=== PATIENT | male | born 1960 | race Caucasian/White ===

== ENCOUNTER 2016-07-05 19:24 | Emergency (ER) | payer BC ==
[~2016-07-05] VITALS: Ht 177.8 cm; Wt 144.9 kg
[2016-07-05 19:26] VITALS: TEMP 36.7; Ht 177.8 cm; Wt 144.9 kg
[2016-07-05] MEDS ORDERED: IBUP-103 PO (19:41)
[2016-07-05] MEDS ORDERED: ACETTAB15 PO (19:41)
[2016-07-05] MEDS ORDERED: EPP3/2 IM (19:41)
[2016-07-05] MEDS ORDERED: DIPHTHERIA/TETANUS/PERTUSSIS 0.5 ML SYR/VIAL IM. ONE (19:45)
[2016-07-05] MEDS ORDERED: LIDOCAINE/EPINEPHRINE 1% 20 ML VIAL INFIL ONE (19:45)
--- NOTE | 2016-07-05 20:44 | DIAGNOSTIC IMAGING REPORT ---
RIGHT FOOT 3 VIEWS HISTORY: right foot laceration Right COMPARISON: None. FINDINGS: There is no fracture or dislocation. Plantar and posterior calcaneal spurs. Mild osteoarthritis at the first MTP joint. Soft tissue laceration at the medial aspect of the first MTP joint. No underlying fracture. Overlying bandage obscures fine bony detail. IMPRESSION: Soft tissue laceration at the medial aspect of the first MTP joint. No underlying fracture. Electronically signed by: Wei Rodriguez M.D. 07/05/2016 8:42 PM Dictated Date/Time: 07/05/2016 8:40 PM
--- NOTE | 2016-07-05 21:52 | EMERGENCY ROOM VISIT NOTE ---
ED Visit Note First contact with patient: 19:34 CHIEF COMPLAINT: Right foot laceration HISTORY OF PRESENT ILLNESS: This 56-year-old male patient presents to the emergency department ambulatory after cutting the right foot one hour prior to arrival. The patient states that he was holding down a plank with his foot while using a circular saw to cut it. He states the saw kicked back, injuring his right foot through his shoe. The bleeding has stopped. Denies weakness or numbness of the foot or toes. The patient rates the pain as sharp and 5/10. The patient denies any other injuries. The patient's Tetanus shot is not up to date. REVIEW OF SYSTEMS: A 6 system review of systems was completed with positives and pertinent negatives listed in the HPI. ALLERGIES: Bee stings MEDICATIONS: No daily medications. PMH: No significant past medical history. SOCIAL HISTORY: The patient lives locally with his family. PHYSICAL EXAM: Vital Signs: Reviewed Nurse's notes, vital signs stable. GENERAL : This is a 56-year-old male, in no acute distress, well-developed, well- nourished. SKIN: There is a 6 cm long laceration on the medial aspect of the right foot. The edges gape apart with traction. There is no foreign material in the wound and it looks clean. There is no active bleeding. No deep structures such as tendons, bones, or significant blood vessels are seen in the base of the wound. Normal strength and movement of the toes. Capillary refill less than 2 seconds. Normal sensation to light and sharp touch. RADIOGRAPHIC FINDINGS: RIGHT FOOT 3 VIEWS HISTORY: right foot laceration Right COMPARISON: None. FINDINGS: There is no fracture or dislocation. Plantar and posterior calcaneal spurs. Mild osteoarthritis at the first MTP joint. Soft tissue laceration at the medial aspect of the first MTP joint. No underlying fracture. Overlying bandage obscures fine bony detail. IMPRESSION: Soft tissue laceration at the medial aspect of the first MTP joint. No underlying fracture. EMERGENCY DEPARTMENT COURSE: I examined the patient. X-ray of the foot was obtained and read by radiology with no acute bony abnormalities. Verbal consent was obtained to perform the procedure. Using sterile technique the wound was cleansed with Betadine. The area was sterilely draped. 6 ml of 1% buffered lidocaine with epinephrine was used to anesthetize the laceration on the foot. Once the patient was anesthetized, the wound was copiously irrigated under pressure with 1 L sterile saline using the Pulsavac irrigation. The wound was explored and was as described above. The laceration was repaired using 12 simple interrupted 4-0 nylon sutures with the wound edges being well approximated. The patient tolerated the procedure well. Hemostasis was achieved. The area was cleaned with sterile saline and dressed with bacitracin ointment and bandage. He was placed in an Tony wrap and postoperative shoe. Conservative measures were discussed. The patient was given Td immunization. The patient was found to be hypertensive, but stated this was normal for him. He will have this rechecked by his primary care provider. The patient verbalized understanding of my assessment and treatment plan and was discharged home in good condition. DIAGNOSIS: Right foot laceration Current/Historical Medications Scheduled PRN Acetaminophen-Caffeine (Excedrin Tension Headache), 1 DOSE PO DIRECTED PRN for Headache Epinephrine (Epipen), 0.3 MG IM UD PRN for BEE STINGS Ibuprofen Tab (Advil), 200-600 MG PO Q4H PRN for Pain Allergies Coded Allergies: BEE STING (Verified Allergy, Severe, ANAPHYLAXIS, 07/05/16) HAS EPIPEN FOR STINGS. Vital Signs Date Time Temp Pulse Resp B/P Pulse Ox O2 Delivery O2 Flow Rate FiO2 07/05/16 22:18 85 20 180/99 96 07/05/16 19:26 36.7 97 18 201/105 96 Room Air Medications Administered Medications (Trade) Dose Ordered Sig/Ryan Route Start Time Stop Time Status Last Admin Dose Admin Diphtheria/ Pertussis/Tetanus Vacc (Adacel Inj) 0.5 ml ONCE ONCE IM. 07/05/16 19:45 07/05/16 19:46 DC 07/05/16 19:59 0.5 ML Departure Information Impression Primary Impression: Laceration of foot Dispostion Home / Self-Care Condition GOOD Referrals Geraldo Boyd III, M.D. (PCP) Patient Instructions My [facility] Additional Instructions You have received 12 sutures on your foot. These sutures are NOT dissolvable and WILL need to be removed by a health care provider in 12-14 days. You can return to the Emergency Department or contact your Primary Care Provider to have the sutures removed. Wear the postoperative shoe until you have your sutures removed. Proper wound care is essential for adequate wound healing and infection prevention. You can shower and clean the wound with soap and water. Do not scour over the wound, pat dry with a towel. Do not submerse the wound (i.e. bathe or dish wash) until the sutures have been removed. You can use an antibiotic ointment with a dressing over the wound for the next 3-4 days. After this time you may leave the wound dry and open to the air. If crust develops over the wound you can use a Q-tip to apply a 1:1 peroxide:water solution to clean the wound. Look for signs of infection of the wound including: increased pain, swelling, foul discharge, streaking, or increased temperature. If any of these are noticed you should return to the Emergency Department for further assessment and treatment. As with any laceration you may have received nerve damage to the surrounding tissues. This damage may or may not be permanent. You should keep the area covered with sunscreen for the first 6 months to 1 year when at risk for exposure to help minimize scarring. You can also use scar reducing creams or Vitamin E oil to help minimize scarring. For pain control, you can use the following [id number] medicines (if >12 yo): - Regular strength (325mg/tab) Tylenol (acetaminophen) 2 tabs every 4-6 hours as needed. Do not exceed 12 tablets in a 24 hour period. Avoid taking more than 4 grams (4000 mg) of Tylenol per day. This includes any other sources of acetaminophen you may take on a regular basis. - Regular strength (200 mg/tab) Advil (ibuprofen) 1-2 tabs every 4-6 hours as needed. Do not exceed a dose of 3200 mg per day. Return to the emergency department if your symptoms worsen despite treatment course outlined above. Problem Qualifiers Primary Impression: Laceration of foot Encounter type: initial encounter Laterality: right Qualified Codes: S91.311A - Laceration without foreign body, right foot, initial encounter
[2016-07-05 22:18] VITALS: BP 180/99; PULSE 85; O2SAT 96
== END 2016-07-05 22:20 | disposition home or self-care (01) ==
LOC: C.EDB 19:24 → C.EDD 22:20
DX: S91.311A Laceration without foreign body, right foot, initial encounter (principal); W31.2XXA Contact with powered woodworking and forming machines, initial encounter; Z23 Encounter for immunization; Z91.030 Bee allergy status